=== PATIENT | male | born 1980 | race African-American/Black ===

== ENCOUNTER 2022-02-21 09:36 | Outpatient (CLI) | payer BC ==
[2022-02-21 10:21] LABS: Estimated GFR-MDRD - POC Greater than 90
[2022-02-21] MEDS ORDERED: ISOVUE-370 76% 1 ML ONE (14:56)
== END 2022-02-21 09:37 | disposition home or self-care (01) ==
LOC: BICCT 09:36
PROVIDERS: ATTEND Specialist
DX: E04.9 Nontoxic goiter, unspecified (principal)
CPT/HCPCS: 70491; 82565

== ENCOUNTER 2025-09-29 09:57 | Outpatient (CLI) | payer BC ==
[2025-09-29 10:49] LABS: #Basophils 0.07 10x3/uL (0.0-0.2); #Eosinophils 0.20 10x3/uL (0.0-0.7); #Monocytes 0.61 10x3/uL (0.11-0.59); #Neutrophils 2.69 10x3/uL (1.40-6.50); %Basophils 1.2 % (0.0-1.0); %Eosinophils 3.6 % (0.0-10.0); %Lymphocytes 36.2 % (21.0-51.0); %Monocytes 10.9 % (0.0-10.0); %Neutrophils 47.9 % (42.0-75.0); Hematocrit 44.1 % (42.0-52.0); Hemoglobin 14.4 g/dL (14.0-18.0); Mean Corpuscular Hemoglobin 29.1 pg (27.0-31.0); Mean Corpuscular Volume 89.3 fL (78.0-98.0); Platelet Count 289 10x3/uL (130-400); Red Blood Cell (RBC) Count 4.94 mill/uL (4.70-6.10); White Blood Cell (WBC) Count 5.61 10x3/uL (4.8-10.8)
[2025-09-29 11:07] LABS: ALT (SGPT) 28 U/L (Less than 45); AST (SGOT) 26 U/L (11-34); Albumin 4.4 g/dL (3.1-4.5); Alkaline Phosphatase 61 U/L (40-110); Anion Gap 17 mmol/L (10-20); BUN (Urea Nitrogen) 11 mg/dL (8.9-20.6); Bilirubin, Total 0.3 mg/dL (0.3-1.2); Calc. Creatinine Clearance 0 mL/min (70-130); Calcium 10.1 mg/dL (7.8-10.44); Carbon Dioxide 24 mmol/L (22-29); Chloride 103 mmol/L (98-107); Globulin 3.3 g/dL (2.4-3.5); Glucose 168 mg/dL (70-105); Potassium 4.2 mmol/L (3.5-5.1); Sodium 140 mmol/L (136-145)
== END 2025-09-29 09:58 | disposition home or self-care (01) ==
LOC: LABBT 09:57
PROVIDERS: ATTEND Surgery
DX: Z01.818 Encounter for other preprocedural examination (principal); E66.01 Morbid (severe) obesity due to excess calories
CPT/HCPCS: 80053; 83036; 85025; 93005; 93010

== ENCOUNTER 2025-09-30 08:27 | Inpatient (IN) | payer BC ==
[2025-09-29 10:22] VITALS: BMI 50.9
[2025-09-30] MEDS ORDERED: Heparin 5,000 UNITS/ML VIAL ONE (09:25)
[2025-09-30] MEDS ORDERED: CEFAZOLIN 2 GM VIAL ONE (09:25)
[2025-09-30] MEDS ORDERED: Ketorolac Tromethamine 30 MG (1 mL) VIAL ONE (09:25)
[2025-09-30] MEDS ORDERED: Acetaminophen 500 MG TAB ONE (09:25)
[2025-09-30] MEDS ORDERED: PROPOFOL 20 ML ONE (09:55)
[2025-09-30] MEDS ORDERED: Scopolamine 1 mg/72 hour Patch ONE (10:07)
[2025-09-30] MEDS ORDERED: Bupivacaine 0.25% HCL 30 ML VIAL ONE (10:34)
[2025-09-30] MEDS ORDERED: fentaNYL PF 100 MCG/2 ML SYRINGE ONE (10:56)
[2025-09-30] MEDS ORDERED: Rocuronium Bromide 10 MG/ML (10ML VIAL) ONE (11:36)
[2025-09-30] MEDS ORDERED: Lidocaine 1% PF 5 ML VIAL ONE (11:36)
[2025-09-30] MEDS ORDERED: SUGAMMADEX SODIUM 200 MG/2 ML VIAL ONE (11:41)
[2025-09-30] MEDS ORDERED: Ondansetron PF 4 MG/2 ML Vial ONE (11:41)
[2025-09-30] MEDS ORDERED: Glucagon 1 MG/ML KIT IM PRN (14:31)
[2025-09-30] MEDS ORDERED: diphenhydrAMINE 50 MG/ML VIAL IVP PRN (14:31)
[2025-09-30] MEDS ORDERED: Ondansetron PF 4 MG/2 ML Vial IVP PRN (14:31)
[2025-09-30] MEDS ORDERED: Dextrose 50% Abboject 50 ML SYRINGE SLOW IVP PRN (14:31)
[2025-09-30] MEDS: oxyCODONE 5 MG TAB PO PRN (14:54)
[2025-09-30] MEDS: 1/2 NS w/Potassium 20 mEq 1,000 ML IV SCH (14:59)
[2025-09-30] MEDS: Pantoprazole 40 MG VIAL IVP SCH (21:05)
[2025-09-30] MEDS: hydrALAZINE 20 MG/ML VIAL SLOW IVP PRN (21:21)
[2025-10-01 04:55] LABS: #Basophils Less than 0.03 10x3/uL (0.0-0.2); #Eosinophils Less than 0.03 10x3/uL (0.0-0.7); #Monocytes 0.94 10x3/uL (0.11-0.59); #Neutrophils 5.00 10x3/uL (1.40-6.50); %Basophils 0.2 % (0.0-1.0); %Eosinophils 0.2 % (0.0-10.0); %Lymphocytes 25.8 % (21.0-51.0); %Monocytes 11.6 % (0.0-10.0); %Neutrophils 62.0 % (42.0-75.0); Hematocrit 38.6 % (42.0-52.0); Hemoglobin 12.8 g/dL (14.0-18.0); Mean Corpuscular Hemoglobin 29.7 pg (27.0-31.0); Mean Corpuscular Volume 89.6 fL (78.0-98.0); Platelet Count 247 10x3/uL (130-400); Red Blood Cell (RBC) Count 4.31 mill/uL (4.70-6.10); White Blood Cell (WBC) Count 8.09 10x3/uL (4.8-10.8)
[2025-10-01 05:09] LABS: Anion Gap 12 mmol/L (10-20); BUN (Urea Nitrogen) 8 mg/dL (8.9-20.6); Calc. Creatinine Clearance 257 mL/min (70-130); Calcium 9.1 mg/dL (7.8-10.44); Carbon Dioxide 25 mmol/L (22-29); Chloride 106 mmol/L (98-107); Glucose 126 mg/dL (70-105); Potassium 3.7 mmol/L (3.5-5.1); Sodium 139 mmol/L (136-145)
[2025-10-01 07:49] VITALS: BP 155/90; TEMP 98
[2025-10-01] MEDS: Metoprolol Succinate XL 25 MG ER.TAB PO SCH (08:10)
[2025-10-01] MEDS: Enoxaparin 60 MG (0.6 mL) SYRINGE SC SCH (08:10)
[2025-10-01] MEDS: Lisinopril 20 MG TAB PO SCH (08:10)
[2025-10-01] MEDS: Pantoprazole 40 MG VIAL IVP SCH (08:11)
[2025-10-03] MEDS ORDERED: PNEUMOC 20-VAL CONJ-DIP CRM/PF 0.5 ML SYRINGE IM ONE (16:45)
== END 2025-10-01 11:09 | disposition home or self-care (01) | DRG 621 ==
LOC: SURG A 08:27
PROVIDERS: ADMIT Surgery; ATTEND Surgery
PROC: 0DB64Z3 Excision of Stomach, Percutaneous Endoscopic Approach, Vertical (ICD-10-PCS; principal; 2025-09-30)
PROC: 8E0W4CZ Robotic Assisted Procedure of Trunk Region, Percutaneous Endoscopic Approach (ICD-10-PCS; 2025-09-30)
DX: E66.01 Morbid (severe) obesity due to excess calories (principal); Z68.43 Body mass index [BMI] 50.0-59.9, adult; E11.9 Type 2 diabetes mellitus without complications; Z79.4 Long term (current) use of insulin
CPT/HCPCS: 36415; 36416; 80048; 85025; 88307; 88342; J0169; J0360; J0665; J1100; J1644; J1650; J1885; J2405; J2470; J2704; J3010; J3480; S2900